=== PATIENT | male | born 1955 | race Caucasian/White ===

== ENCOUNTER → 2019-11-20 | Outpatient (CLI) | payer OTHER ==
[~2019-11-20] MED LIST: ASPI-496 PO; CARV3.122 PO; FENO160T PO; FURO20TA3 PO; LISI5TAB7 PO; SIMV40TA3 PO; SPIR25TA5 PO; TRAM50TA2 PO
[2019-11-20 08:05] LABS: CREATININE 1.28 mg/dL (0.7-1.3)
== END | disposition home or self-care (01) ==
LOC: LAB 07:43
PROVIDERS: ATTEND Orthopaedic Surgery
DX: M75.100 Unspecified rotator cuff tear or rupture of unspecified shoulder, not specified as traumatic (principal)
CPT/HCPCS: 36415; 82565; 84520

== ENCOUNTER 2019-11-24 13:35 | Outpatient (CLI) | payer OTHER ==
[~2019-11-24 13:35] MED LIST changes: +LIDOCAINE 1%, 20ML ONE; +LIDOCAINE-MPF 1%, 5ML ONE; +OMNIPAQUE 180 MG/ML, 20ML VIAL ONE
== END 2019-11-24 23:59 | disposition home or self-care (01) ==
LOC: RAD 13:35
PROVIDERS: ATTEND Orthopaedic Surgery
DX: S46.012A Strain of muscle(s) and tendon(s) of the rotator cuff of left shoulder, initial encounter (principal); M19.012 Primary osteoarthritis, left shoulder; Z79.891 Long term (current) use of opiate analgesic; Z79.899 Other long term (current) drug therapy; Z95.0 Presence of cardiac pacemaker
CPT/HCPCS: 23350; 73040; 73201; Q9965